=== PATIENT | male | born 1980 | race Hispanic/Latino ===

== ENCOUNTER 2020-07-19 07:20 | Day surgery (SDC) | payer OTHER ==
[2020-07-19] VITALS (7 sets, daily range): BP systolic 97–124; BP diastolic 62–76
[~2020-07-19 07:20] MED LIST: ESCI-8 PO; SODIUM CHLORIDE 0.9% 1000ML 1,000 ML IV ONE
[2020-07-19] MEDS ORDERED: PROPOFOL 10 MG/ML 20ML VIAL IV ONE (08:56)
[2020-07-19] MEDS ORDERED: GLYCOPYRROLATE 0.2 MG/ML 5 ML VIAL ONE (09:12)
== END 2020-07-19 10:10 | disposition home or self-care (01) ==
LOC: DAH 07:20 → ENDO 07:20
PROVIDERS: ATTEND Internal Medicine Gastroenterology
DX: R74.8 Abnormal levels of other serum enzymes (principal); Z20.822 Contact with and (suspected) exposure to COVID-19; K86.89 Other specified diseases of pancreas; K59.00 Constipation, unspecified; K31.89 Other diseases of stomach and duodenum; F41.9 Anxiety disorder, unspecified; Z88.8 Allergy status to other drugs, medicaments and biological substances; Z86.19 Personal history of other infectious and parasitic diseases; Z90.49 Acquired absence of other specified parts of digestive tract; Z80.0 Family history of malignant neoplasm of digestive organs; Z79.899 Other long term (current) drug therapy; Z98.890 Other specified postprocedural states
CPT/HCPCS: 43237; 43239; A4215; A4221; A4222; A4223; A4606; A4620; A4657; A4663; C9803; J2704; J3490; J7030; U0003

== ENCOUNTER 2020-07-22 17:37 | Observation (INO) | payer OTHER ==
[~2020-07-22] VITALS: Ht 185.4 cm; Wt 87.3 kg
[~2020-07-22 17:37] MED LIST changes: -SODIUM CHLORIDE 0.9% 1000ML 1,000 ML IV ONE
[2020-07-22] MEDS ORDERED: DICYCLOMINE 20MG (10MG/ML) AMP IM ONE (18:59)
[2020-07-22] MEDS ORDERED: 0.9%NACL 1000ML 1,000 ML IV ONE (18:59)
[2020-07-22 19:08] LABS: BASOPHILS % (AUTO) 0.8 % (0.0-5.0); EOSINOPHILS % (AUTO) 0.6 % (0.0-8.0); HEMATOCRIT 41.3 % (42-54); LYMPHOCYTES % (AUTO) 28.2 % (21.0-51.0); MEAN CORPUSCULAR HEMOGLOBIN 30.8 pg (27.0-33.0); MEAN CORPUSCULAR HGB CONC 34.6 g/dL (32.0-36.0); MEAN CORPUSCULAR VOLUME 88.8 fL (79-99); MONOCYTES % (AUTO) 6.3 % (3.0-13.0); NEUTROPHILS % (AUTO) 63.9 % (40.0-77.0); PLATELET COUNT (AUTO) 244 K/uL (130-400); RED BLOOD CELL COUNT(AUTO) 4.65 MIL/uL (4.50-6.20); RED CELL DISTRIBUTION WIDTH 12.7 % (11.0-15.5); WHITE BLOOD COUNT (AUTO) 6.6 K/uL (4.8-10.8)
[2020-07-22 19:12] LABS: CREATININE 0.8 mg/dL (0.5-1.5); POTASSIUM 4.4 mmol/L (3.5-5.1)
[2020-07-22 19:16] LABS: ALBUMIN 4.2 g/dL (3.5-5.0); TOTAL PROTEIN, SERUM 7.7 g/dL (6.0-8.3)
[2020-07-22 19:28] LABS: APPEARANCE,URINE Clear (CLEAR); BILIRUBIN,URINE Negative (NEGATIVE); COLOR,URINE Yellow (YELLOW); GLUCOSE, URINE (UA) Negative (NEGATIVE); KETONES,URINE Negative (NEGATIVE); LEUKOCYTE ESTERASE ,URINE Negative (NEGATIVE); NITRATE,URINE Negative (NEGATIVE); OCCULT BLOOD,URINE Negative (NEGATIVE); PH,URINE 7.5 (5.0-8.0); PROTEIN,URINE Negative (NEGATIVE)
[2020-07-23] MEDS ORDERED: HYDROMORPHONE 0.5 MG SYG (0.5MG/0.5ML) ONE (01:11)
[2020-07-23] MEDS ORDERED: ONDANSETRON 4MG INJ ONE (01:11)
[2020-07-23] MEDS ORDERED: ONDANSETRON 4MG INJ IV PRN (02:45)
[2020-07-23] MEDS ORDERED: ACETAMINOPHEN 325 MG TAB PO PRN ×2 (02:45)
[2020-07-23] MEDS ORDERED: HYDROMORPHONE 1 MG INJ IVP PRN ×2 (02:45)
[2020-07-23 04:45] VITALS: BP 100/63
[2020-07-23 06:10] LABS: BASOPHILS % (AUTO) 0.6 % (0.0-5.0); EOSINOPHILS % (AUTO) 1.6 % (0.0-8.0); HEMATOCRIT 36.6 % (42-54); LYMPHOCYTES % (AUTO) 43.5 % (21.0-51.0); MEAN CORPUSCULAR HEMOGLOBIN 30.2 pg (27.0-33.0); MEAN CORPUSCULAR HGB CONC 33.6 g/dL (32.0-36.0); MEAN CORPUSCULAR VOLUME 89.9 fL (79-99); MONOCYTES % (AUTO) 6.7 % (3.0-13.0); NEUTROPHILS % (AUTO) 47.5 % (40.0-77.0); PLATELET COUNT (AUTO) 199 K/uL (130-400); RED BLOOD CELL COUNT(AUTO) 4.07 MIL/uL (4.50-6.20); RED CELL DISTRIBUTION WIDTH 12.5 % (11.0-15.5); WHITE BLOOD COUNT (AUTO) 6.7 K/uL (4.8-10.8)
[2020-07-23 06:32] LABS: ALBUMIN 3.4 g/dL (3.5-5.0); BILIRUBIN,TOTAL 1.3 mg/dL (0.2-1.0); CREATININE 0.9 mg/dL (0.5-1.5); POTASSIUM 4.4 mmol/L (3.5-5.1); TOTAL PROTEIN, SERUM 6.1 g/dL (6.0-8.3)
[2020-07-23] MEDS: FAMOTIDINE 20MG VIAL IV SCH ×2 (09:00→20:54)
[2020-07-23 09:53] VITALS: BP 92/52
[2020-07-23 12:00] VITALS: BP 97/59
[2020-07-23 16:43] VITALS: BP 107/65
[2020-07-23] MEDS ORDERED: LORAZEPAM 2 MG/ML 1 ML VIAL IVP PRN (17:30)
[2020-07-23] MEDS ORDERED: 0.9%NACL 1000ML 1,000 ML IV SCH (17:45)
[2020-07-23] MEDS ORDERED: ZOLPIDEM TARTRATE 5 MG TAB PO ONE (18:45)
[2020-07-23 19:10] VITALS: BP 103/62
[2020-07-23] MEDS ORDERED: ZOLPIDEM TARTRATE 5 MG TAB ONE (20:51)
[2020-07-23] MEDS ORDERED: ZOLPIDEM TARTRATE 5 MG TAB PO SCH (21:00)
[2020-07-23] MEDS ORDERED: HYOSCYAMINE SULFATE 0.125 MG TAB.SUBL SL PRN (23:15)
[2020-07-23 23:46] VITALS: BP 105/62
[2020-07-24 03:20] VITALS: BP 102/62
[2020-07-24 05:40] LABS: BASOPHILS % (AUTO) 0.6 % (0.0-5.0); EOSINOPHILS % (AUTO) 1.7 % (0.0-8.0); HEMATOCRIT 38.5 % (42-54); LYMPHOCYTES % (AUTO) 41.9 % (21.0-51.0); MEAN CORPUSCULAR HEMOGLOBIN 29.4 pg (27.0-33.0); MEAN CORPUSCULAR HGB CONC 32.7 g/dL (32.0-36.0); MONOCYTES % (AUTO) 8.8 % (3.0-13.0); NEUTROPHILS % (AUTO) 46.7 % (40.0-77.0); PLATELET COUNT (AUTO) 216 K/uL (130-400); RED BLOOD CELL COUNT(AUTO) 4.28 MIL/uL (4.50-6.20); RED CELL DISTRIBUTION WIDTH 12.3 % (11.0-15.5); WHITE BLOOD COUNT (AUTO) 7.3 K/uL (4.8-10.8)
[2020-07-24 06:16] LABS: ALBUMIN 3.4 g/dL (3.5-5.0); BILIRUBIN,DIRECT 0.2 mg/dL (0.0-0.3); BILIRUBIN,TOTAL 1.2 mg/dL (0.2-1.0); POTASSIUM 4.3 mmol/L (3.5-5.1); TOTAL PROTEIN, SERUM 6.4 g/dL (6.0-8.3)
[2020-07-24 08:55] VITALS: BP 100/55
[2020-07-24] MEDS: FAMOTIDINE 20MG VIAL IV SCH (09:24)
[2020-07-24] MEDS ORDERED: CITALOPRAM 20 MG TABLET PO SCH (12:00)
[2020-07-25] MEDS ORDERED: ALPR0.5T PO ×2 (12:24)
[2020-07-25] MEDS ORDERED: FAMO-290 PO ×2 (12:24)
== END 2020-07-24 11:00 | disposition home or self-care (01) ==
LOC: EDH 17:37 → EDHIP 07-23 02:40 → 3CH 07-23 04:15
PROVIDERS: ADMIT Internal Medicine; ATTEND Internal Medicine
DX: R10.11 Right upper quadrant pain (principal); K76.89 Other specified diseases of liver; E80.4 Gilbert syndrome; F17.200 Nicotine dependence, unspecified, uncomplicated; Z90.49 Acquired absence of other specified parts of digestive tract; Z79.899 Other long term (current) drug therapy; Z88.5 Allergy status to narcotic agent
CPT/HCPCS: 36415 ×3; 74181; 76705; 80048; 80053 ×2; 80076; 81003; 82150; 82948; 83690 ×2; 84145; 84484; 85025 ×3; 93005; 96361; 96374; 96375; 96376 ×2; 99285; G0378 ×32; J0500; J1170 ×2; J2405; J3490 ×3; J7030 ×2

== ENCOUNTER 2020-07-26 06:16 | Day surgery (SDC) | payer OTHER ==
[~2020-07-26] VITALS: Ht 185.4 cm; Wt 86.2 kg
[~2020-07-26 06:16] MED LIST changes: +0.9%NACL 1000ML 1,000 ML IV ONE; +ACETAMINOPHEN 325 MG TAB PO PRN; +ALPR0.5T PO; +FAMO-290 PO; +FAMOTIDINE 20MG VIAL IV SCH; +HYDROMORPHONE 2 MG VIAL (2MG/ML) IVP PRN; +ONDANSETRON 4MG INJ IV PRN
[2020-07-26 06:57] VITALS: BP 115/73
[2020-07-26] MEDS ORDERED: MIDAZOLAM HCL 1 MG/ML 2ML VIAL ONE ×2 (08:51→09:35)
[2020-07-26] MEDS ORDERED: PROPOFOL 10 MG/ML 20ML VIAL IV ONE (08:51)
[2020-07-26] MEDS ORDERED: ATROPINE 1MG SYG IVP ONE (09:46)
[2020-07-26 09:50] VITALS: BP 98/41
[2020-07-26 09:55] VITALS: BP 105/47
[2020-07-26 10:00] VITALS: BP 113/36
[2020-07-26 10:05] VITALS: BP 104/62
== END 2020-07-26 10:20 | disposition home or self-care (01) ==
LOC: DAH 06:16 → ENDO 06:16
PROVIDERS: ATTEND Internal Medicine Gastroenterology
DX: K59.00 Constipation, unspecified (principal); R10.11 Right upper quadrant pain; R63.4 Abnormal weight loss; K57.30 Diverticulosis of large intestine without perforation or abscess without bleeding; K21.9 Gastro-esophageal reflux disease without esophagitis; F41.9 Anxiety disorder, unspecified; F17.210 Nicotine dependence, cigarettes, uncomplicated; Z88.5 Allergy status to narcotic agent; Z90.49 Acquired absence of other specified parts of digestive tract; Z86.19 Personal history of other infectious and parasitic diseases; Z98.890 Other specified postprocedural states; Z79.899 Other long term (current) drug therapy; Z82.49 Family history of ischemic heart disease and other diseases of the circulatory system; Z83.3 Family history of diabetes mellitus; Z68.25 Body mass index [BMI] 25.0-25.9, adult
CPT/HCPCS: 45378; 84145; A4215 ×2; A4221; A4222; A4223; A4606; A4620; A4657; A4663; J0461; J2250 ×2; J2704; J7030 ×2; J3490